=== PATIENT | female | born 1955 | race Caucasian/White ===

== ENCOUNTER 2022-12-25 16:58 | Emergency (ER) | payer MEDICARE, MEDICAID ==
[2022-12-25] MEDS ORDERED: Midazolam 1 MG/ML 2 ML SDV IM ONE (16:59)
[2022-12-25] MEDS ORDERED: Ketamine 500 mg/10 ML MDV IM ONE (16:59)
[2022-12-25] MEDS ORDERED: Sodium Chloride 0.9% 10 ML Syringe FLUSH PRN (17:35)
[2022-12-25] MEDS ORDERED: Sodium Chloride 0.9% 1,000 ML IV ONE (17:35)
[2022-12-25] MEDS ORDERED: Ondansetron 4 MG/2 ML SDV IVPUSH ONE (18:04)
[2022-12-25 18:19] LABS: INFLUENZA A NAA NEGATIVE (NEGATIVE); INFLUENZA B NAA NEGATIVE (NEGATIVE)
[2022-12-25 18:41] LABS: CORONAVIRUS COVID-19 NAA NEGATIVE (NEGATIVE)
[2022-12-25 18:44] LABS: HEMATOCRIT 32.9 % (34.2-48.2); HEMOGLOBIN 11.2 g/dL (11.4-15.5); MEAN CORPUSCULAR HEMOGLOBIN 27.2 pg (23.9-33.9); MEAN CORPUSCULAR HGB CONC 34.1 g/dL (31.9-34.8); MEAN CORPUSCULAR VOLUME 79.6 fL (76.7-100.5); MEAN PLATELET VOLUME 7.2 fL (7.1-12.4); PLATELET COUNT,PLT 527 x10(3)uL (151-488); RED BLOOD CELL COUNT 4.13 x10(6)uL (3.60-5.20); RED CELL DISTRIBUTION WIDTH 15.1 % (12.3-16.5); WHITE BLOOD CELL COUNT,WBC 9.5 x10-3/uL (3.0-10.3)
[2022-12-25 18:47] LABS: A/G RATIO 0.7; ALANINE AMINOTRANSFERASE,ALT 21 U/L (12-36); ALBUMIN 3.5 g/dL (3.2-4.6); ALKALINE PHOSPHATASE 180 IU/L (56-112); ASPARTATE AMNIOTRANSFERASE,AST 14 IU/L (5-25); BILIRUBIN TOTAL 0.5 mg/dL (0.1-1.3); BLOOD UREA NITROGEN,BUN 10 mg/dL (7-18); BUN/CREATININE RATIO 16.7 (9-20); CALCIUM 9.6 mg/dL (8.6-10.2); CARBON DIOXIDE,CO2 27 mmol/L (21-32); CREATININE 0.6 mg/dL (0.55-1.02); ESTIMATED GFR 100 mL/min (>60); GLUCOSE RANDOM 165 mg/dL (80-116); POTASSIUM,K 3.8 mmol/L (3.5-5.3); PROTEIN TOTAL,TP 8.6 g/dL (6.0-8.0); SODIUM,NA 126 mmol/L (135-145)
[2022-12-25 18:48] LABS: BILIRUBIN,URINE NEGATIVE (NEGATIVE); GLUCOSE,URINE NORMAL (NORMAL); KETONES,URINE 15 mg/dL (NEGATIVE); LEUKOCYTE ESTERASE,URINE MODERATE (NEGATIVE); NITRITE,URINE NEGATIVE (NEGATIVE); OCCULT BLOOD,URINE MODERATE (NEGATIVE); PH,URINE 6.5 (5.0-6.5); PROTEIN,URINE 30 mg/dL (NEGATIVE); UROBILINOGEN,URINE NORMAL (NEGATIVE)
[2022-12-25 18:54] LABS: INR 1.07 (1.00-1.24); PTT,PARTIAL THROMBOPLSTIN TIME 25.7 SECONDS (24.4-33.2)
[2022-12-25 18:55] LABS: LACTIC ACID 1.7 mmol/L (0.4-2.0); TROPONIN I 43.8 pg/mL (4.0-60.3)
[2022-12-25 18:55] LABS: APPEARANCE,URINE SLIGHTLY CLOUDY (CLEAR); BACTERIA,URINE MANY (NS); COLOR,URINE YELLOW (YELLOW); SQUAMOUS EPITHELIAL CELLS,UR RARE (NS,R,O)
[2022-12-25 18:57] LABS: CHLORIDE,CL 89 mmol/L (100-110)
[2022-12-25 19:02] LABS: LYMPHOCYTES PERCENT MAN 8 % (13-37); MONOCYTES PERCENT MAN 6 % (4-12); SEG NEUTROPHILS PERCENT MAN 86 % (46-82)
[2022-12-25] MEDS ORDERED: cefTRIAXone 2 GM Vial IVPUSH ONE (19:25)
[2022-12-25] MEDS ORDERED: cefTRIAXone 1 GM Vial IM ONE (19:30)
[2022-12-25] MEDS ORDERED: cefTRIAXone 1 GM Vial IVPUSH ONE (19:45)
== END 2022-12-25 21:00 | disposition home or self-care (01) ==
LOC: FB.ED 16:58
DX: E87.1 Hypo-osmolality and hyponatremia (principal); N39.0 Urinary tract infection, site not specified; D64.9 Anemia, unspecified; J90 Pleural effusion, not elsewhere classified; I10 Essential (primary) hypertension; E03.9 Hypothyroidism, unspecified; Z20.822 Contact with and (suspected) exposure to COVID-19; Z79.899 Other long term (current) drug therapy
CPT/HCPCS: 0240U; 36415; 51701; 71045; 74177; 80053; 81001; 83605; 83880; 84484; 85025; 85610; 85730; 86140; 87040; 87077; 87086; 87088; 87186; 96361; 96374; 96375; 99284; 99284-25; J0696; J2250; J2405; J3490; J7030